=== PATIENT | female | born 1960 | race Caucasian/White ===

== ENCOUNTER 2024-01-28 11:56 | Emergency (ER) | payer OTHER | END 2024-01-28 14:10 | disposition home or self-care (01) | LOC: MADERS 11:56 | DX: S60.212A Contusion of left wrist, initial encounter (principal); S60.211A Contusion of right wrist, initial encounter; S29.9XXA Unspecified injury of thorax, initial encounter; S60.011A Contusion of right thumb without damage to nail, initial encounter; I10 Essential (primary) hypertension; E11.9 Type 2 diabetes mellitus without complications; V43.53XA Car driver injured in collision with pick-up truck in traffic accident, initial encounter; W22.10XA Striking against or struck by unspecified automobile airbag, initial encounter | CPT/HCPCS: 71046 ==